=== PATIENT | male | born 1970 | race Caucasian/White ===

== ENCOUNTER 2023-05-04 18:01 | Emergency (ER) | payer BC, SELFPAY ==
--- NOTE | ~2023-05-04 | XR_ITS ---
EXAM: XR elbow RT min 3V DATE: 05/04/2023 18:35 HISTORY: FELL ON ELBOW X2 WKS AGO. POST PAIN/SWELLING NOW. . COMPARISON: None available. FINDINGS: Normal mineralization. No fracture or dislocation. No lytic or blastic lesion. Joint space s are maintained. No fat pad displacement. No erosion or periosteal change. Significant posterior sof t tissue swelling. IMPRESSION: No acute osseous finding in the right elbow. Significant posterior swelling, correlate fo r findings of infection. Reviewed, dictated and finalized at location K. IMPRESSION: No acute osseous finding in the right elbow. Significant posterior swelling, correlate for findings of infection.
[2023-05-04 18:16] VITALS: BP 122/81; PULSE 99; RESP 20; TEMP 36.8; O2SAT 100
--- NOTE | 2023-05-04 18:21 | ED.UPPEXIN ---
HPI - Extremity Injury (Upper) General Chief Complaint: Extremity Injury, Upper Stated Complaint: injured right arm from fall History of Present Illness HPI narrative: PATIENT PRESENTS WITH RIGHT ELBOW SWELLING , TENDERNESS AND WARM TO TOUCH. 2 WEEKS AGO PATIENT FELL ON HIS ELBOW. PATIENT REPORTS IT WAS HEALED AND HE WENT FISHING YESTERDAY AND WOKE UP THIS AM WITH TENDERNESS AND WARMTH TO ELBOW. Related Data Allergies Allergy/AdvReac Type Severity Reaction Status Date / Time No Known Allergies Allergy Verified 05/04/23 18:19 Review of Systems Review of Systems: CONSTITUTIONAL: DENIES FEVER, CHILLS, OR SWEATS. EYES: DENIES VISUAL CHANGES, REDNESS, OR DISCHARGE. ENT: DENIES RHINORRHEA, CONGESTION, SORE THROAT, OR OTALGIA. CARDIOVASCULAR: DENIES CHEST PAIN, PALPITATIONS, OR EDEMA. RESPIRATORY: DENIES COUGH OR DYSPNEA. GASTROINTESTINAL: DENIES ABDOMINAL PAIN, NAUSEA, VOMITING, OR DIARRHEA. GENITOURINARY: DENIES DYSURIA OR HEMATURIA. SKIN: DENIES RASH OR ITCHING. MUSCULOSKELETAL: DENIES BACK PAIN, JOINT PAIN, OR MYALGIA. NEUROLOGIC: DENIES HEADACHE, NUMBNESS, OR WEAKNESS. PSYCHIATRIC: DENIES ANXIETY OR DEPRESSION. PMFSH Comments AT TIME OF SIGNATURE, AGREE WITH NURSING PAST MEDICAL, SURGICAL, SOCIAL AND FAMILY HISTORY. THERE IS NO RELEVANT FAMILY HISTORY PERTINENT TO THE PRESENTING COMPLAINT Exam Narrative: GENERAL: WELL-APPEARING, WELL-NOURISHED, AND IN NO ACUTE DISTRESS. HEAD: NORMOCEPHALIC, ATRAUMATIC. EYES: PERRLA AND EOMI. ENT: NARES CLEAR, NO RHINORRHEA OR EPISTAXIS. MUCOUS MEMBRANES MOIST. NECK: SUPPLE. CHEST: CLEAR TO AUSCULTATION. NO RESPIRATORY DISTRESS. HEART: REGULAR RATE AND RHYTHM. NO MURMUR HEARD. NORMAL PERIPHERAL PULSES. ABDOMEN: SOFT, NONTENDER, NONDISTENDED, NORMAL ACTIVE BOWEL SOUNDS. EXTREMITIES: NORMAL RANGE OF MOTION. NO EDEMA. ELBOW EXAM RIGHT ELBOW WARM TENDER TO TOUCH WITH 1 CM AREA OF ABRASION TO CENTER OF RIGHT ELBOW. HAND EXAM - Skin intact, no laceration, no swelling, no erythema, normal digit cascade with flexion of fingers, median nerve, ulnar nerve, radial nerve is intact. Normal sensation of each side of each finger, can perform `ok? sign, `cross over finger test of index and middle fingers? and `thumbs up? sign, normal thumb opposition, no scissoring. good capillary refill and radial pulse. normal flexion and extension of fingers and wrist. normal supination at wrist. Normal forearm and elbow exam. SKIN: WARM, DRY, NO RASH. NEURO: NO FOCAL DEFICITS. ALERT AND ORIENTED X3. MARCELLA COMA SCALE EYE OPENING: SPONTANEOUS 4 MARCELLA COMA SCALE MOTOR: OBEYS COMMANDS 6 MARCELLA COMA SCALE VERBAL: ORIENTED 5 MARCELLA COMA SCALE TOTAL 15 Course Course Level of Care: Express Care Visit Discharge Plan Discharge Clinical Impression: Cellulitis, Cellulitis of right elbow, Tendonitis of elbow, right Patient Disposition: Home, Self-Care Condition: Stable Instructions: Antibiotic Form, Elbow Bursitis (ED) Additional Instructions: ICE TO THE AREA 20-30 MINUTES 4-6 TIMES A DAY ELEVATE ABOVE HEART ORTHOPEDIC SPLINT DIRECTED FOR COMFORT FOR THE NEXT 5-[address] UP WITH DR RONALD SILVERIO (ORTHOPEDIC [employer] RESEARCH ASSOCIATE) CALL OFFICE IN AM FOR FOLLOW UP APPOINTMENT [phone] TYLENOL FOR LESSER PAIN IBUPROFEN REGULARLY FOR THE NEXT 2-3 DAYS FOR THE INFLAMMATION FOLLOW-UP WITH PCP IF FURTHER PROBLEMS OR CONCERNS -IF YOU HAVE ANY WORSENING OF SYMPTOMS OR ANY OTHER CONCERNS PLEASE GO TO THE ED IMMEDIATELY. Prescriptions: New prednisone 20 mg tablet 40 mg PO DAILY 5 Days Qty: 10 0RF sulfamethoxazole-trimethoprim [Bactrim DS] 800-160 mg tablet 1 tablet PO Q12H 7 Days Qty: 14 0RF Follow-up/Referrals: Erna,Robe Corona M.D. [Primary Care Provider] -
== END 2023-05-04 19:09 | disposition home or self-care (01) ==
PROVIDERS: Emergency Provider Nurse Practitioner Family; PCP Family Medicine
DX: L03.113 Cellulitis of right upper limb (principal); M77.8 Other enthesopathies, not elsewhere classified
CPT/HCPCS: 73080; 99213; G0463